=== PATIENT | male | born 1955 | race Caucasian/White ===

== ENCOUNTER 2019-01-27 16:13 | Inpatient (IN) | payer OTHER, SELFPAY | END 2019-01-30 12:08 | disposition home or self-care (01) | DRG 153 | PROVIDERS: Admitting Provider Family Medicine; Emergency Provider Emergency Medicine; PCP Internal Medicine; Visit Provider Family Medicine | DX: J06.9 Acute upper respiratory infection, unspecified (principal); I13.0 Hypertensive heart and chronic kidney disease with heart failure and stage 1 through stage 4 chronic kidney disease, or unspecified chronic kidney disease; I50.32 Chronic diastolic (congestive) heart failure; N18.4 Chronic kidney disease, stage 4 (severe); Z68.42 Body mass index [BMI] 45.0-49.9, adult; J96.10 Chronic respiratory failure, unspecified whether with hypoxia or hypercapnia; E66.2 Morbid (severe) obesity with alveolar hypoventilation; I48.0 Paroxysmal atrial fibrillation; R79.89 Other specified abnormal findings of blood chemistry; E11.22 Type 2 diabetes mellitus with diabetic chronic kidney disease; Z79.01 Long term (current) use of anticoagulants; I25.10 Atherosclerotic heart disease of native coronary artery without angina pectoris; Z79.84 Long term (current) use of oral hypoglycemic drugs; Z87.891 Personal history of nicotine dependence | CPT/HCPCS: 99285; 96374; 51701; 85027 ×2; 85025 ×2; 83690; 83735; 36415 ×4; 84484 ×2; 80048 ×3; 80053; 81001; 83880; 87804; 93005; 71046; 94640 ×3; 82805; G0378 ×5; J1940; 36600; A9270; J1815 ==

== ENCOUNTER 2019-12-24 15:00 | Outpatient (RCR) | payer OTHER, SELFPAY ==
[2019-10-07 11:04] VITALS: BMI 49.1
[2019-10-07 12:20] VITALS: BMI 49.1
[2019-11-12 14:09] VITALS: BMI 50.1
[2019-11-12 14:11] VITALS: BMI 50.1
[2019-12-24 15:07] VITALS: BMI 49.8; BMI 50.1
== END 2020-01-05 23:59 | disposition home or self-care (01) ==
LOC: ANHDMC 15:00
PROVIDERS: PCP Internal Medicine; Visit Provider Internal Medicine
DX: E66.9 Obesity, unspecified (principal); Z71.3 Dietary counseling and surveillance
CPT/HCPCS: 97802; 97803

== ENCOUNTER 2020-03-24 14:00 | Outpatient (RCR) | payer OTHER, SELFPAY ==
[2020-01-19 09:37] VITALS: BMI 50.2
[2020-02-25 08:13] VITALS: BMI 47.8
[2020-02-25 08:15] VITALS: BMI 47.8
[2020-03-24 13:54] VITALS: BMI 48.0
[2020-03-24 13:58] VITALS: BMI 48.0
== END 2020-04-18 23:59 | disposition home or self-care (01) ==
LOC: ANHDMC 14:00
PROVIDERS: PCP Internal Medicine; Visit Provider Internal Medicine
DX: E11.9 Type 2 diabetes mellitus without complications (principal); E66.9 Obesity, unspecified; Z71.3 Dietary counseling and surveillance
CPT/HCPCS: 97802; 97803

== ENCOUNTER 2020-04-16 07:55 | Outpatient (CLI) | payer OTHER, SELFPAY ==
--- NOTE | 2020-04-16 | ECG_ITS ---
Measurements Intervals [place] Rate: 83 P: TN: 0 QRS: -27 QRSD: 90 T: 7 QT: 372 QTc: 438 Interpretive Statements ATRIAL FIBRILLATION DELAYED PRECORDIAL R/S TRANSITION INFERIOR INFARCT, AGE INDETERMINATE BORDERLINE ST-T WAVE ABNORMALITY- HIGH LATERAL LEADS BASELINE ARTIFACT- I, III, AVR, AVL, AVF, V4 ABNORMAL ECG Electronically Signed On 04-16-2020 11:26:37 CDT by Tomas Haynes D.O.
== END 2020-04-16 07:56 | disposition home or self-care (01) ==
LOC: ANHLAB 08:00 → ANHCARD 09:10
PROVIDERS: PCP Internal Medicine
DX: I48.91 Unspecified atrial fibrillation (principal); R94.31 Abnormal electrocardiogram [ECG] [EKG]
CPT/HCPCS: 93005

== ENCOUNTER 2022-08-09 02:18 | Day surgery (SDC) | payer MEDICARE, SELFPAY ==
[2022-07-30 14:34] VITALS: BMI 39.2
[2022-08-09] MEDS: LACTATED RINGERS 1,000 ML 150 ML IV CONT (11:24)
[2022-08-09 11:25] VITALS: BP 180/97; PULSE 100; RESP 22; TEMP 36.2; O2SAT 98
[2022-08-09 11:28] LABS: Glucose Point of Care 93 mg/dl (65-105)
--- NOTE | 2022-08-09 11:28 | WPDANESEPPF ---
Anes - Initial Pre Proc Eval Procedure: Operation Date: 08/09/22 12:30 Proposed Procedures p Screening Colonoscopy - Nate Velarde MD Date/Time: 08/09/22 11:28 Surgeon: Nate Velarde MD Pre Op Diagnosis: family hx of colon cancer Patient Data Age: 66 Gender: M Height: 1.7 m Weight: 125.2 kg Last Vital Signs Temp 97.2 F L 08/09/22 11:25 Pulse 100 08/09/22 11:25 Resp 22 H 08/09/22 11:25 BP 180/97 H 08/09/22 11:25 Pulse Ox 98 08/09/22 11:25 O2 Del Method Room Air 08/09/22 11:25 Allergies Allergy/AdvReac Type Severity Reaction Status Date / Time glimepiride Allergy Severe Seizure Verified 07/30/22 14:46 warfarin Allergy Severe Nose Bleed Verified 07/30/22 14:46 hydralazine Allergy Intermediate Fainting Verified 07/30/22 14:46 adhesive Allergy Mild Redness of Verified 07/30/22 14:46 Skin QUINAPRIL HCL Allergy Severe Swelling Uncoded 07/30/22 14:46 Home Medications Medication Instructions Recorded Confirmed Type blood sugar diagnostic #10 ea 01/25/20 04/20/22 History carvedilol 25 mg tablet 50 mg PO BID 01/25/20 07/30/22 History furosemide 40 mg tablet 40 mg PO BID 01/25/20 07/30/22 History multivitamin 1 tablet PO DAILY 01/25/20 07/30/22 History potassium chloride 20 mEq 20 meq PO BID 01/25/20 07/30/22 History tablet,extended release(part/cryst) (Klor-Con M) atorvastatin 40 mg tablet 40 mg PO DAILY 11/29/20 07/30/22 History isosorbide mononitrate 60 mg 60 mg PO DAILY 11/29/20 07/30/22 History tablet,extended release 24 hr telmisartan 80 mg tablet 80 mg PO DAILY 11/29/20 07/30/22 History ferrous sulfate 325 mg (65 mg 325 mg PO DAILY 04/20/22 07/30/22 History iron) tablet (Feosol) mecobalamin (vitamin B12) 5,000 5,000 mcg PO DAILY 06/24/22 10/03/22 History mcg disintegrating tablet rivaroxaban 20 mg tablet (Xarelto) 20 mg PO DAILY 04/20/22 07/30/22 History glipizide 10 mg tablet 10 mg PO DAILY #90 tabs 04/25/22 07/30/22 Rx sodium,potassium,mag sulfates 17.5 See Rx Instructions PO .COMPLEX 07/24/22 07/30/22 Rx gram-3.13 gram-1.6 gram oral soln #354 mL (Suprep Bowel Prep Kit) calcium citrate 315 mg 3 tablet PO DAILY 07/30/22 07/30/22 History calcium-vitamin D3 6.25 mcg (250 unit) tablet doxazosin 2 mg tablet 2 mg PO HS 07/30/22 07/30/22 History Laboratory Tests 08/09/22 11:17 POC Capillary Glucose Pending Patient hx anesthesia problems: none Family hx anesthesia problems: none Results Review: All pre-operative results and documents have been reviewed as part of the pre-operative evaluation. [facility] Surgical History Surgical History History of bariatric surgery Family History Family History Father Patient's father is Mother Carcinoma of colon Social History Social History Smoking status: Never smoker Smoking end date: 10/28/75 Alcohol intake: current Drinks per week: 2 Substance use: never Substance use type: does not use Living arrangements: with family Spiritual care concerns: No Anes - Eval Final PreProcedure Day of Procedure 08/09/22 11:28 Patient weight: morbidly obese Heart: irregular rhythm Lungs: clear to auscultation Airway: Mallampati scale class III Neurological: alert and oriented Last oral intake: >/= 8 hours ASA classification: IV Emergent: no Anesthetic plan: proceed Results Review: All pre-operative results and documents have been reviewed as part of the pre-operative evaluation. Informed Consent: The patient's anesthetic plan and its attendant risks and benefits were discussed with the patient/family/POA. Questions were solicited and answers provided to the satisfaction of the patient/family/POA.
--- NOTE | 2022-08-09 11:30 | PM.HPGS ---
History of Present Illness History of Present Illness Consent: Risks, benefits, and alternatives have been discussed and questions answered. Patient agrees to proceed with procedure. Chief complaint: family hx of colon cancer Narrative: Trevon Ivy is a 66 year old male Presents for screening colonoscopy. Patient's current weight appetite bowel movements are normal. He denies abdominal pain. Pacing has had no bleeding. Family history is significant that his mother and sister both have had colon cancer his father had colon polyps. Patient presents today for screening colonoscopy. Review of Systems Review of Systems: Review of systems noncontributory. [facility] Surgical History Surgical History History of bariatric surgery Family History Family History Father Patient's father is Mother Carcinoma of colon Social History Social History Smoking status: Never smoker Smoking end date: 10/28/75 Alcohol intake: current Drinks per week: 2 Substance use: never Substance use type: does not use Living arrangements: with family Spiritual care concerns: No Meds Home Medications and Allergies Home Medications Medication Instructions Recorded Confirmed Type blood sugar diagnostic #10 ea 01/25/20 04/20/22 History carvedilol 25 mg tablet 50 mg PO BID 01/25/20 07/30/22 History furosemide 40 mg tablet 40 mg PO BID 01/25/20 07/30/22 History multivitamin 1 tablet PO DAILY 01/25/20 07/30/22 History potassium chloride 20 mEq 20 meq PO BID 01/25/20 07/30/22 History tablet,extended release(part/cryst) (Klor-Con M) atorvastatin 40 mg tablet 40 mg PO DAILY 11/29/20 07/30/22 History isosorbide mononitrate 60 mg 60 mg PO DAILY 11/29/20 07/30/22 History tablet,extended release 24 hr telmisartan 80 mg tablet 80 mg PO DAILY 11/29/20 07/30/22 History ferrous sulfate 325 mg (65 mg 325 mg PO DAILY 04/20/22 07/30/22 History iron) tablet (Feosol) mecobalamin (vitamin B12) 5,000 5,000 mcg PO DAILY 04/20/22 07/30/22 History mcg disintegrating tablet rivaroxaban 20 mg tablet (Xarelto) 20 mg PO DAILY 04/20/22 07/30/22 History glipizide 10 mg tablet 10 mg PO DAILY #90 tabs 04/25/22 07/30/22 Rx sodium,potassium,mag sulfates 17.5 See Rx Instructions PO .COMPLEX 07/24/22 07/30/22 Rx gram-3.13 gram-1.6 gram oral soln #354 mL (Suprep Bowel Prep Kit) calcium citrate 315 mg 3 tablet PO DAILY 07/30/22 07/30/22 History calcium-vitamin D3 6.25 mcg (250 unit) tablet doxazosin 2 mg tablet 2 mg PO HS 07/30/22 07/30/22 History Allergies Allergy/AdvReac Type Severity Reaction Status Date / Time glimepiride Allergy Severe Seizure Verified 07/30/22 14:46 warfarin Allergy Severe Nose Bleed Verified 07/30/22 14:46 hydralazine Allergy Intermediate Fainting Verified 07/30/22 14:46 adhesive Allergy Mild Redness of Verified 07/30/22 14:46 Skin QUINAPRIL HCL Allergy Severe Swelling Uncoded 07/30/22 14:46 Vital Signs Vital Signs - 24 hr 08/09/22 11:25 Temperature 97.2 F L Pulse Rate 100 Respiratory Rate 22 H Blood Pressure 180/97 H Pulse Oximetry 98 Oxygen Delivery Room Air Exam Narrative: Physical exam reveals patient to be alert. Vital signs stable. HEENT exam is unremarkable. Patient is anicteric. Lungs are clear to auscultation and percussion. Heart is without murmur or extra sounds. Abdomen is obese. Bowel sounds are present soft nontender with no organomegaly. Digital external rectal exam is normal. Assessment and Plan Assessment and plan (1) Family hx of colon cancer: Code(s): Z80.0 - Family history of malignant neoplasm of digestive organs Status: Acute Assessment and Plan: Patient has a family history of colon cancer in both mother and sister. His father had colon polyps
[2022-08-09 12:18] VITALS: BP 112/57; PULSE 88; RESP 20; O2SAT 97
[2022-08-09 12:28] VITALS: BP 121/63; PULSE 82; RESP 28; O2SAT 96
[2022-08-09 12:38] VITALS: BP 123/58; PULSE 82; RESP 20; O2SAT 99
== END 2022-08-09 12:57 | disposition home or self-care (01) ==
PROVIDERS: PCP Internal Medicine; Visit Provider Internal Medicine Gastroenterology
PROC: 0DJD8ZZ Inspection of Lower Intestinal Tract, Via Natural or Artificial Opening Endoscopic (ICD-10-PCS; CPT 45378; principal; 2022-08-09 12:30)
DX: Z12.11 Encounter for screening for malignant neoplasm of colon (principal); D12.2 Benign neoplasm of ascending colon; Z80.0 Family history of malignant neoplasm of digestive organs; Z98.84 Bariatric surgery status; Z79.84 Long term (current) use of oral hypoglycemic drugs; E66.01 Morbid (severe) obesity due to excess calories; Z68.41 Body mass index [BMI] 40.0-44.9, adult
CPT/HCPCS: 45385; 82948; 88305; J2704; J7120

== ENCOUNTER 2024-08-19 09:29 | Outpatient (CLI) | payer MEDICARE, SELFPAY ==
--- NOTE | 2024-08-19 | ECG_ITS ---
Test Date: 2024-08-19 09:56:44 Measurements Intervals [place] Rate: 94 P: 0 NV: 0 QRS: -31 QRSD: 82 T: 55 QT: 333 QTc: 417 Interpretive Statements ATRIAL FIBRILLATION PATTERN CONSISTENT WITH PULMONARY DISEASE INFERIOR MYOCARDIAL INFARCTION , PROBABLY OLD [40+ ms Q WAVE AND/OR ST/T ABNORMALITY IN II/aVF] ABNORMAL ECG No previous ECG available for comparison Electronically Signed On 08-19-2024 10:25:28 CDT by Goran Woodruff M.D.
== END 2024-08-19 09:30 | disposition home or self-care (01) ==
PROVIDERS: PCP Internal Medicine; Visit Provider Internal Medicine Cardiovascular Disease
DX: I48.91 Unspecified atrial fibrillation (principal); R94.31 Abnormal electrocardiogram [ECG] [EKG]
CPT/HCPCS: 93005

== ENCOUNTER 2025-04-16 09:27 | Outpatient (CLI) | payer MEDICARE, SELFPAY ==
--- NOTE | ~2025-04-16 | XR_ITS ---
Cervical Spine: AP, lateral, open-mouth views Clinical History: Pain Findings: The normal lordotic curve is maintained. No fracture or subluxation. There is advanced dege nerative disc narrowing at C5-C6 and C6-C7. There is mild facet arthropathy throughout the cervical s pine.. Pre-vertebral soft tissues are unremarkable. Impression: Moderate degenerative spondylosis from C5 to C7. Mild degenerative changes otherwise. Reviewed, dictated and finalized at location . Impression: Moderate degenerative spondylosis from C5 to C7. Mild degenerative changes othe rwise.
== END 2025-04-16 09:28 | disposition home or self-care (01) ==
PROVIDERS: PCP Internal Medicine; Visit Provider Internal Medicine
DX: M47.812 Spondylosis without myelopathy or radiculopathy, cervical region (principal)
CPT/HCPCS: 72040

== ENCOUNTER 2025-07-09 08:43 | Emergency (ER) | payer MEDICARE, SELFPAY ==
--- NOTE | ~2025-07-09 | XR_ITS ---
Examination: XR chest 2V Clinical History: fever 6 days rales R lung field former smoker hx chf, bronch Comparison: None Technique: PA and Lateral Findings: Cardiomediastinal silhouette normal size and configuration. Right lower lobe airspace disease. No acute bony abnormality. IMPRESSION: 1. Right lower lobe pneumonia. Recommend follow-up x-rays to document resolution. Reviewed, dictated and finalized at location R. IMPRESSION: 1. Right lower lobe pneumonia. Recommend follow-up x-rays to document resoluti on.
[2025-07-09 08:54] VITALS: BP 114/75; PULSE 129; RESP 20; TEMP 37.8; O2SAT 96
--- NOTE | 2025-07-09 09:05 | ED.FEVER ---
HPI - Fever General Chief Complaint: Fever Stated Complaint: Fever Time Seen by Provider: 07/09/25 09:05 Source: patient Mode of arrival: ambulatory Limitations: no limitations History of Present Illness HPI Narrative: 69-year-old male presents with complaint of fever for 6 days. No other symptoms. Reports that he started to have generalized weakness yesterday. Denies nausea vomiting diarrhea. Eating and drinking normally. No urinary symptoms. All systems reviewed and negative except as noted above. Related Data Home Medications ?Medication ?Instructions ?Recorded ?Confirmed ?Last Taken ?Type blood sugar diagnostic #10 ea 01/25/20 04/14/25 Unknown History furosemide 40 mg tablet 40 mg PO BID 01/25/20 04/14/25 08/08/22 History multivitamin 1 tablet PO DAILY 01/25/20 04/14/25 08/08/22 History atorvastatin 40 mg tablet 40 mg PO DAILY 11/29/20 04/14/25 08/08/22 History isosorbide mononitrate 60 mg 60 mg PO DAILY 11/29/20 04/14/25 08/09/22 10:00 History tablet,extended release 24 hr telmisartan 80 mg tablet 80 mg PO DAILY 11/29/20 04/14/25 08/08/22 History ferrous sulfate 325 mg (65 mg 325 mg PO DAILY 04/20/22 04/14/25 08/08/22 History iron) tablet (Feosol) mecobalamin (vitamin B12) 5,000 5,000 mcg PO DAILY 04/20/22 04/14/25 08/08/22 History mcg disintegrating tablet rivaroxaban 20 mg tablet (Xarelto) 20 mg PO DAILY 04/20/22 04/14/25 08/06/22 History doxazosin 2 mg tablet 2 mg PO HS 07/30/22 04/14/25 08/08/22 History spironolactone 25 mg tablet 25 mg PO DAILY 05/03/23 04/14/25 Unknown History amlodipine 10 mg tablet 10 mg PO DAILY 08/26/24 04/14/25 Unknown History cetirizine 10 mg capsule (Zyrtec) 10 mg PO DAILY PRN 08/26/24 04/14/25 Unknown History fluticasone furoate 50 inhalation 08/26/24 04/14/25 Unknown History mcg/actuation blister powder for inhalation metoprolol succinate 200 mg mg PO DAILY 08/26/24 04/14/25 Unknown History tablet,extended release 24 hr Allergies Allergy/AdvReac Type Severity Reaction Status Date / Time glimepiride Allergy Severe Seizure Verified 04/14/25 10:27 warfarin Allergy Severe Nose Bleed Verified 04/14/25 10:27 hydralazine Allergy Intermediate Fainting Verified 04/14/25 10:27 adhesive Allergy Mild Redness of Verified 04/14/25 10:27 Skin QUINAPRIL HCL Allergy Severe Swelling Uncoded 04/14/25 10:27 PMFSH Past Medical History Medical History (Updated 07/09/25 @ 10:00 by Antonina Bentley NP) SOB (shortness of breath) Other fatigue Encounter for screening for malignant neoplasm of prostate Anemia, unspecified Allergic rhinitis, unspecified Surgical History Surgical History History of bariatric surgery Family History Family History (Updated 08/26/24 @ 13:23 by HERMAN Burrows) Father CHF (congestive heart failure) Heart disease Diabetes mellitus Mother Carcinoma of colon Sibling Carcinoma of colon Sibling Diabetes mellitus Social History Social History (Updated 08/26/24 @ 13:24 by HERMAN Burrows) Smoking status: Former smoker Second hand tobacco smoke exposure: Yes Smoking end date: 10/28/75 Alcohol intake: current Drinks per week: 2 Substance use: never Substance use type: does not use Do You Feel Safe in your Home?: Yes Lack of Transportation: No Lack of Food: Never True Current Housing: I Have Housing Concerned About Future Housing: No Difficulty Paying Gas/Electric Bills: No Difficulty Paying for Meds: No Currently Unemployed: No Education: High School Diploma/GED Difficulty w/ Childcare or Family Care: No Living arrangements: with family Occupation/Education: retired 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 Gender identity (if verbalized by the patient): Male Spiritual care concerns: No Comments At time of signature, agree with nursing past medical, surgical, social and family history. There is no relevant family history pertinent to the presenting complaint. Exam Narrative: GENERAL: This is a well-nourished, well-developed patient, in no apparent distress. HEAD: normocephalic, atraumatic. EYES: PERRL. Sclera clear/white. Vision is grossly intact. EARS: External ears normal, auditory canals clear and without drainage, TMs normal without perforation. Hearing grossly intact. NOSE: External nose normal with Clear nasal drainage THROAT: Mucous membranes moist, posterior pharynx clear. NECK: Neck supple, non-tender without lymphadenopathy, masses or thyromegaly. CARDIOVASCULAR: Regular rate and rhythm without murmurs, gallops, or rubs. RESPIRATORY: Rales to right lung field otherwise clear. Breath sounds equal bilaterally. No wheezes or rhonchi. SKIN: warm, Dry, intact with no suspicious lesions or rash, good texture and turgor. NEURO: awake, alert, and oriented to person, place and time. There were no obvious focal neurologic abnormalities. EXTREMITIES: No joint tenderness, effusion, or edema noted. Course Course Level of Care: [facility] Visit Vital Signs Vital signs: Vital Signs Temperature 37.8 C H 07/09/25 08:54 Pulse Rate 129 H 07/09/25 08:54 Respiratory Rate 20 07/09/25 08:54 Blood Pressure 114/75 07/09/25 08:54 Pulse Oximetry 96 07/09/25 08:54 Oxygen Delivery Room Air 07/09/25 08:54 Temperature 37.8 C H 07/09/25 08:54 Pulse Rate 129 H 07/09/25 08:54 Respiratory Rate 20 07/09/25 08:54 Blood Pressure 114/75 07/09/25 08:54 Pulse Oximetry 96 07/09/25 08:54 Oxygen Delivery Room Air 07/09/25 08:54 reviewed MDM - Fever MDM Narrative Medical decision making narrative: discussed x-ray results with pt. pt has R lower lobe pneumonia. Given ceftriaxone at [facility]. prescribing doxycycline and augmentin. Recommend follow up with PCP in 1 wk. no resp distress. Will go to the ER for any worsening of symptoms. Differential Diagnosis Differential diagnosis: Likely community acquired pneumonia, viral infection, sepsis and influenza Lab Data Labs: Lab Results 07/09/25 07/09/25 Range/Units 09:26 09:39 POC Urine Color Yellow POC Urine Clarity Clear POC Urine pH 6.0 POC Ur Specif [place] 1.015 POC Urine Protein 2+ (Negative) POC Ur Glucose (UA) Negative (Negative) POC Urine Ketones Trace (Negative) POC Urine Blood 1+ (Negative) POC Urine Nitrite Negative (Negative) POC Urine Bilirubin Negative (Negative) POC Urine Urobilinogen 1.0 POC U Leukocyte Esteras Negative (Negative) POC Influenza A Ag Negative (Negative) POC Influenza B Ag Negative (Negative) POC SARS CoV-2 Ag Negative (Negative) Imaging Data My impression: agree with radiologist Radiologist's impression: Examination: XR chest 2V Clinical History: fever 6 days rales R lung field former smoker hx chf, bronch Comparison: None Technique: PA and Lateral Findings: Cardiomediastinal silhouette normal size and configuration. Right lower lobe airspace disease. No acute bony abnormality. IMPRESSION: 1. Right lower lobe pneumonia. Recommend follow-up x-rays to document resolution. Discharge Plan Discharge Clinical Impression: Pneumonia Qualifiers: Laterality: right Lung location: lower lobe of lung Patient Disposition: Home Condition: Stable Instructions: Antibiotic Form, Pneumonia (ED) Additional Instructions: Take antibiotics as prescribed until gone. Drink at least 64 ounces of water a day. Continue to stay active at home to keep energy up, walking hallway. Schedule follow up appointment with your primary care physician. Patient Language: Swiss Prescriptions: New doxycycline hyclate 100 mg capsule 100 mg PO BID 7 Days Qty: 14 0RF amoxicillin-pot clavulanate 875-125 mg tablet 1 tablet PO Q12H 10 Days Qty: 20 0RF No Action multivitamin Tablet 1 tablet PO DAILY furosemide 40 mg tablet 40 mg PO BID (DME) blood sugar diagnostic Strip See Rx Instructions .ROUTE .MEDSUPPLY Qty: 10 Rx Instructions: As directed amlodipine 10 mg tablet 10 mg PO DAILY metoprolol succinate 200 mg tablet extended release 24 hr PO DAILY Zyrtec 10 mg capsule 10 mg PO DAILY PRN fluticasone furoate 50 mcg/actuation blister with device inhalation atorvastatin 40 mg tablet 40 mg PO DAILY isosorbide mononitrate 60 mg tablet extended release 24 hr 60 mg PO DAILY telmisartan 80 mg tablet 80 mg PO DAILY mecobalamin (vitamin B12) 5,000 mcg tablet,disintegrating 5,000 mcg PO DAILY ferrous sulfate [Feosol] 325 mg (65 mg iron) tablet 325 mg PO DAILY Xarelto 20 mg tablet 20 mg PO DAILY Rx Instructions: must administer with evening meal spironolactone 25 mg tablet 25 mg PO DAILY doxazosin 2 mg tablet 2 mg PO HS glipizide 10 mg tablet 10 mg PO DAILY Qty: 90 3RF Follow-up/Referrals: Adalid Saleh DO [Primary Care Provider, Internal Medicine] Referral Note: follow up in 1 week Time of Disposition: 10:01
[2025-07-09 09:42] LABS: EDUAAPPEAR Clear; EDUABILI Negative (Negative); EDUABLOOD 1+ (Negative); EDUACOLOR1 Yellow; EDUAGLUCOSE Negative (Negative); EDUAKETONE Trace (Negative); EDUALEUKO Negative (Negative); EDUANITRATE Negative (Negative); EDUAPH 6.0; EDUAPROTEIN 2+ (Negative); EDUASPGRAVITY 1.015; EDUAUROBILI 1.0
[2025-07-09 09:42] LABS: EDCOVIDSCREEN Negative (Negative); EDINFLUASCREEN Negative (Negative); EDINFLUBSCREEN Negative (Negative)
[2025-07-09] MEDS: cefTRIAXone 1 GM, LIDOCAINE 1% LOCAL INJ 2.1 ML IM (10:25)
== END 2025-07-09 11:00 | disposition home or self-care (01) ==
PROVIDERS: Emergency Provider Nurse Practitioner Family; PCP Internal Medicine
DX: J18.1 Lobar pneumonia, unspecified organism (principal); Z20.822 Contact with and (suspected) exposure to COVID-19; Z87.891 Personal history of nicotine dependence; D64.9 Anemia, unspecified; Z79.01 Long term (current) use of anticoagulants
CPT/HCPCS: 71046; 81003; 87426; 87804; 96372; 99213; G0463; J0696; J2003

== ENCOUNTER 2025-07-27 09:45 | Outpatient (RCR) | payer MEDICARE, SELFPAY ==
--- NOTE | 2025-05-05 15:25 | OPREHPOC ---
Outpatient Therapy Plan of Care This is a Multidisciplinary Plan of Care that may contain components documented by all disciplines (PT, OT, and ST.) PT Problem 1 PT Problem #1 Knowledge Deficit PT Goal 1 Goal / Goal Update Patient to demonstrate independence with HEP for improved self-reliance of symptom management. Target Visit 5 PT Problem 2 PT Problem #2 Pain PT Goal 1 Goal / Goal Update Patient to decrease subjective reports of pain to <2/10 with cervical rotation for improved driving tolerance. Target Visit 10 PT Problem 3 PT Problem #3 Impaired Range of Motion PT Goal 1 Goal / Goal Update 1. Patient to demonstrate an increase of Faisal cervical rotation AROM to >=40 degrees to improve safety with driving. 2. Patient to demonstrate an increase of cervical ext AROM to >=45 degrees with minimal c/o pain to improve the ability to drink from a cup. Target Visit 10 PT Problem 4 PT Problem #4 Impaired Strength PT Goal 1 Goal / Goal Update Patient to demonstrate Faisal shoulder flexion and abduction strength >=4+/5 for improved functional stability required for ADLs. Target Visit 12
--- NOTE | 2025-05-05 15:25 | PTOPEVAL1 ---
Assessment and note entered by Kortney Tiwari, PT Evaluation Information Assessment Status Evaluation ICD-10 Condition Codes (PT) Cervicalgia M54.2 Onset >6 months Subjective Information Pt reports his neck has been bothering him for over 6 months now. He was hoping it would resolve on its own but at his next MD appt it did not so he mentioned it. He has had a few ground level falls but does not think these caused the pain but maybe exacerbated them. He is having difficulty and pain when driving and trying to look over his shoulders. The pain in in the midline if his lower neck and can be on the sides when he turns. He denies radicular symptoms but can have a dull ache in both of his shoulders at time. He is able to sleep okay but when he rolls over it is uncomfortable. He does not notice the pain as much when he is golfing 2-3x/wk. Reported Pain Level Pain Score 0: Self Report Assessment PT Clinical Summary Pt is a 69 year old male who presents to physical therapy with a primary complaint of cervical pain for the last 6 months. Pt demonstrates Faisal shoulder flexion and abduction weakness, mechanical reproduction of cervical pain, decreased mobility, abnormal posture, and decreased tissue extensibility that limit their ability to perform ADLs. Pt will benefit from skilled physical therapy to address the above listed deficits and return to PLOF. HEP instructed and written handout provided, EX tolerated well with no adverse effects to note post-session. Pt was educated on importance of adherence to HEP. Pt was also educated on anatomy, prognosis, home modalities, and PT POC. Plan of Care Interventions Electrical Stimulation,Hot Pack/Cold Pack,Manual Therapy,Mechanical Traction,Neuro Re-education, Therapeutic Activities,Therapeutic Exercise PT Services Indicated Yes Treatment Frequency and 2x/wk for 10 sessions Duration These treatments will address the objective and functional deficits as defined above. The patient will be advanced safely and appropriately in order for the patient to progress towards his/her prior level of function. Additional exercises will be introduced and as well as a comprehensive home exercise program upon discharge, if needed, ?to ensure carryover of functional gains achieved in the clinic. This treatment plan has been reviewed and agreement upon by the patient.
--- NOTE | 2025-06-16 11:38 | OPREHPOC ---
Outpatient Therapy Plan of Care This is a Multidisciplinary Plan of Care that may contain components documented by all disciplines (PT, OT, and ST.) PT Problem 1 PT Problem #1 Knowledge Deficit PT Goal 1 Goal / Goal Update Patient to demonstrate independence with HEP for improved self-reliance of symptom management. Target Visit 5 Progress Met PT Problem 2 PT Problem #2 Pain PT Goal 1 Goal / Goal Update Patient to decrease subjective reports of pain to <2/10 with cervical rotation for improved driving tolerance. Target Visit 10 Progress Met PT Problem 3 PT Problem #3 Impaired Range of Motion PT Goal 1 Goal / Goal Update 1. Patient to demonstrate an increase of Faisal cervical rotation AROM to >=40 degrees to improve safety with driving. (06/16/25 R rotation: 28, L Rotation: 35) 2. Patient to demonstrate an increase of cervical ext AROM to >=45 degrees with minimal c/o pain to improve the ability to drink from a cup. (06/16/25 Extension: 30) Target Visit 10 Progress Partially Met PT Problem 4 PT Problem #4 Impaired Strength PT Goal 1 Goal / Goal Update Patient to demonstrate Faisla shoulder flexion and abduction strength >=4+/5 for improved functional stability required for ADLs. (06/16/25 Flexion; R: 4+/5 L: 4+/5, Abduction; R: 4/5 L: 4/5) Target Visit 10 Progress Partially Met
--- NOTE | 2025-06-16 11:38 | PTOPPROG ---
Assessment and note entered by Kortney Tiwari, PT Evaluation Information Assessment Status Progress ICD-10 Condition Codes (PT) Cervicalgia M54.2 Onset >6 months Subjective Information Pt reports routine HEP compliance multiple times a day. He thinks the stretches help his neck feel looser. He reports pain at its worst in the last week 11/06, sharp with certain turning. He still likes taking hot showers to help loosen his neck and shoulder up even more. Not as much aching in Faisal shoulders. Overall since first starting therapy the pt reports feeling 40% improvement. He reports continued difficulty with driving and sleeping. His sleep disruptions are minimal now. He is able to swing his golf club but will get sharp pains randomly. Assessment PT Clinical Summary Patient's condition has improved overall as evidenced by advancements in symptoms, mobility, strength, and overall functional tolerance to ADLs . However, some limitations are still present such as decreased FAISAL shoulder abduction strength, limited cervical rotation ROM FAISAL and extension. Patient would benefit from continued skilled PT services to address the above listed impairments and facilitate a return to their PLOF. Plan of Care Interventions Electrical Stimulation,Hot Pack/Cold Pack,Manual Therapy,Mechanical Traction,Neuro Re-education, Therapeutic Activities,Therapeutic Exercise Other Interventions taping, dry needling PT Services Indicated Yes Treatment Frequency and 1-2x/wk for 10 sessions Duration These treatments will address the objective and functional deficits as defined above. The patient will be advanced safely and appropriately in order for the patient to progress towards his/her prior level of function. Additional exercises will be introduced and as well as a comprehensive home exercise program upon discharge, if needed, ?to ensure carryover of functional gains achieved in the clinic. This treatment plan has been reviewed and agreement upon by the patient.
== END 2025-08-03 23:59 | disposition home or self-care (01) ==
LOC: ANHPT 09:45
PROVIDERS: PCP Internal Medicine; Visit Provider Internal Medicine
DX: M54.2 Cervicalgia (principal)
CPT/HCPCS: 97014; 97110; 97140; 97161; 97530; G0283

== ENCOUNTER 2025-07-28 07:57 | Outpatient (CLI) | payer MEDICARE, SELFPAY ==
--- NOTE | ~2025-07-28 | XR_ITS ---
EXAMINATION: XR chest 2V, 07/28/2025 8:08 CDT HISTORY: J18.9 - Pneumonia, unspecified organism, FOLLOW UP COMPARISON: No comparisons available. Technique: 2 views obtained. Findings: The lungs are clear, no effusion. No pneumothorax. Heart is normal size. Mediastinal and hilar contours are within normal limits. Bony thorax no acute abnormality. Impression: No acute cardiopulmonary abnormality. Reviewed, dictated and finalized at location P. Impression: No acute cardiopulmonary abnormality.
--- OUTSIDE RECORDS SUMMARY | 2025-07-28 08:08 | XMS_ITS | Encounter Summary ---
Author Organization [facility] Address [address] [place] [address] Phone Care Team Providers Care Test Technician Name Role Phone Guido Hernandez MD Primary Care Provider [phone] Jed Bonilla MD Unavailable [phone] Adalid Saleh DO Primary Care Provider [phone] Encounter Details Date Type Department Care Team (Latest Contact Info) Description 10/24/2022 Orders Only [facility] Scanning, Provider Social History Tobacco Use Types Packs/Day Years Used Date Smoking Tobacco: Former Cigarettes 0.5 1 1 975 - 1975 Smokeless Tobacco: Never Alcohol Use Standard Drinks/Week Comments Yes 0 (1 standard drink = 0.6 oz pur e alcohol) rarely PHQ-2 Answer Date Recorded PHQ-2 Total Score (If total score is 3 or more points, staff should administer the PHQ-9) 0 07/09/2020 Sex and Gender Information Value Date Recorded Sex Assigned at Not on file 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 Gender Identity Male 06/10/2022 7:27 PM CDT Sexual Orientation Straight 05/27/2020 7: 21 PM CDT documented as of this encounter Plan of Treatment Not on file documented as of this encounter Procedures Procedure Name Priority Date/Time Associated Diagnosis Comments SCAN - LABS 10/24/2022 documented in this encounter Results * SCAN - LABS (10/24/2022) us Provider Scanning Final Result documented in this encounter Visit Diagnoses Not on filedocumented in this encounter Care Teams Test Technician Relationship Specialty Start Date End Date Guido Hernandez MD [address] [place] [address] PCP - General 01/25/17 05/23/25 Adalid Saleh DO [address] [place] [address] PCP - General Internal Medicine 05/24/25 Jed Bonilla MD [address] [place] [address] Referring Physician General Surgery 04/05/20 documented as of this encounter
--- OUTSIDE RECORDS SUMMARY | 2025-07-28 08:09 | XMS_ITS | Clinical Summary ---
Author Organization [facility] Address [address] [place] [address] Care Team Providers Care Delivery Motorcycle Driver Name Role Phone Guido Hernandez DO Primary Care Provider [phone] Source Comments [facility],non-owned Affiliates and Associated Physician Practices is amultiple site organization consisting of ambulatory clinics and hospital sitesin [place], [place], [place]. This disclosure is being madepursuant to the Care Everywhere program and may not contain all information available regarding this patient. 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 Gender Identity Not on file Sexual Orientation Not on file Plan of Treatment Health Maintenance Due Date Last Done Comments COLOGUARD (AGES 45-75) - COL ON CA SCREENING 1955 COLON MONITORING 1955 COLONOSCOPY - COLON CA SCREENING 1955 CT COLONOGRAPHY - COLON CA SCREENING 1955 Colorectal Cancer Screening 1955 FIT - COLON CA SCREENING 1955 FLEX SIG - COLON CA SCREENING 1955 LIPID TESTING 1955 HEPATITIS C SCREENING 09/19/1973 DTAP/TDAP/TD VACCINES (1 - Tdap) 1974 PNEUMOCOCCAL VACCINE 50+ (1 of 1 - PCV) 2005 ZOSTER VACCINE (1 of 2) 2005 DEPRESSION SCREENING 10/28/2024 COVID-19 VACCINE (1 - 2023-2 5 season) 2025 INFLUENZA VACCINE (#1) 2025 Respiratory Syncytial Virus (RSV) Vaccine Pt: or over 60 yrs (1 - 1-dose 75+ series) 2030 HEPATITIS B VACCINE Aged Out No longe r eligible based on patient's age to complete this topic HIB VACCINE Aged Out No longer eligi ble based on patient's age to complete this topic HPV VACCINE Aged Out No longer eligi ble based on patient's age to complete this topic MENINGOCOCCAL (Group B) VACC INE SHARED DECISION-MAKING Aged Out No longer eligibl e based on patient's age to complete this topic MENINGOCOCCAL GROUPS A/C/Y/W VACCINE Aged Out No longer eligible b ased on patient's age to complete this [place] [address] [employer] Care Teams Delivery Motorcycle Driver Relationship Specialty Start Date End Date Guido Hernandez DO [address] [facility] [address] [facility] [address] [place] [address] PCP - General 08/21/22
--- OUTSIDE RECORDS SUMMARY | 2025-07-28 08:09 | XMS_ITS | Encounter Summary ---
Author Organization [facility] Address [address] [place] [address] Phone Care Team Providers Care Casino Cage Cashier Name Role Phone Guido Hernandez MD Primary Care Provider [phone] Jed Bonilla MD Unavailable [phone] Adalid Saleh DO Primary Care Provider [phone] Encounter Details Date Type Department Care Team (Latest Contact Info) Description 11/25/2020 Orders Only [facility] Scanning, Provider [...] on file Legal Sex Male 1:56 AM NEGATIVE CHECKER Gender Identity Male 06/10/2022 7:27 PM CDT Sexual Orientation Straight 05/27/2020 7: 21 PM CDT documented as of this encounter Plan of Treatment Not on file documented as of this encounter Procedures Procedure Name Priority Date/Time Associated Diagnosis Comments SCAN - LABS 11/25/2020 documented in this encounter Results * SCAN - LABS (11/25/2020) us Provider Scanning Final Result documented in this encounter Visit Diagnoses Not on filedocumented in this encounter Care Teams Casino Cage Cashier Relationship Specialty Start Date End Date Guido Hernandez MD [address] [place] [address] PCP - General 01/25/17 05/23/25 Adalid Saleh DO [address] [place] [address] PCP - General Internal Medicine 05/24/25 Jed Bonilla MD [address] [place] [address] Referring Physician General Surgery 04/05/20 documented as of this encounter
--- OUTSIDE RECORDS SUMMARY | 2025-07-28 08:09 | XMS_ITS | Clinical Summary ---
Author Organization [facility] Address [address] [place] [address] Care Team Providers Care Fabric Worker Name Role Phone Jed Bonilla MD Unavailable [phone] Adalid Saleh DO Primary Care Provider Allergies Active Allergy Reactions Criticality Noted Date Comments Adhesive Tape-Silicones Itching,Redness Medium Quinapril Anaphylaxis High Medications glipiZIDE (GLUCOTROL) 10 mg tabletIndicatio ns:type 2 diabetes mellitus Take 1 tablet (10 mg total) by mouth daily after dinner Active cetirizine (ZyrTEC) 10 mg tabletIndicatio ns:Seasonal Allergic Rhinitis Take 1 tablet (10 mg total) by mouth as needed Active ferrous sulfate 325 mg (65 mg of elemental iron) tablet Take 1 tablet (65 mg of elemental iron total) by mouth as needed 03/19/20 12 Active fluticasone propionate (FLONASE) 50 mcg/actuation nasal sprayIndication s:Allergic Rhinitis Administer 2 sprays into each nostril as needed Active cyanocobalamin, vitamin B-12, 500 mcg tablet,disinteg ratingIndicatio ns:Prevention of Vitamin B12 [address] 500 mcg under the tongue daily 30 each 07/10/20 20 Active multivitamin tabletIndicatio ns:Vitamin Deficiency Prevention Take 1 tablet by mouth 2 (two) times a day 60 tablet 5 07/10/20 20 Active furosemide (LASIX) 40 mg tablet Take 1 tablet (40 mg total) by mouth 3 (three) times a week 12 tablet 11 08/26/20 23 Active spironolactone (ALDACTONE) 25 mg tablet Take 1 tablet (25 mg total) by mouth daily 90 tablet 3 10/12/20 24 Active telmisartan (MICARDIS) 80 mg tablet TAKE 1 TABLET BY MOUTH EVERY DAY 90 tablet 3 10/12/20 24 Active atorvastatin (LIPITOR) 40 mg tablet TAKE 1 TABLET BY MOUTH EVERY DAY 90 tablet 3 01/07/20 25 Active rivaroxaban (Xarelto) 20 mg tablet TAKE 1 TABLET BY MOUTH EVERY DAY WITH DINNER 90 tablet 1 03/04/20 25 Active doxazosin (CARDURA) 2 mg tablet TAKE 1 TABLET BY MOUTH EVERY DAY AT NIGHT 90 tablet 3 04/02/20 25 Active isosorbide mononitrate ER (IMDUR) 60 mg 24 hr tablet TAKE 1 TABLET BY MOUTH EVERY DAY 90 tablet 3 04/02/20 25 Active amLODIPine (NORVASC) 10 mg tablet TAKE 1 TABLET BY MOUTH EVERY DAY 90 tablet 3 07/08/20 25 Active metoprolol XL (TOPROL-XL) 200 mg extended release tablet TAKE 1 TABLET BY MOUTH EVERY DAY 90 tablet 3 07/27/20 25 Active metoprolol XL (TOPROL-XL) 200 mg extended release tablet Take 1 tablet (200 mg total) by mouth daily 30 tablet 11 08/10/20 24 025 Discontinued amLODIPine (NORVASC) 10 mg tablet Take 1 tablet (10 mg total) by mouth daily 30 tablet 11 08/21/20 24 025 Discontinued Active Problems Problem Noted Date Diagnosed Date Status post bariatric surgery 08/23/2020 No diagnosis on [place] I 06/03/2020 Hypokalemia 09/06/2017 Chronic kidney disease 02/20/2017 Morbid obesity 08/08/2015 History of cardiomyopathy 08/08/2015 Obesity 01/09/2013 Obstructive sleep apnea syndrome 01/09/2013 Hypertension 01/09/2013 Atrial fibrillation 04/02/2012 Chest pain 03/19/2012 Encounters Date Type Department Care Team Description 05/24/2025 12:00 PM CDT Office Visit [facility] [address] [facility] [address] [place] [address] Huan Lopez MD Permanent atrial fibrillation (HCC) (Primary Dx); Hypertension, unspecified type; Chronic systolic heart failure (HCC); Dyslipidemia from Last 3 Months Surgical History Surgery Date Site/Laterality Comments CHOLECYSTECTOMY CARDIAC ELECTROPHYSIOLOGY MAPPING AND ABLATION ANKLE SURGERY Medical History Medical History Date Comments CHF (congestive heart failure) (HCC) Atrial fibrillation (HCC) Hypertension Sleep apnea Cardiomyopathy Hard to intubate isolated episod e with cardiac ablation only Hyperlipemia CAD (coronary artery disease) Type 2 diabetes mellitus Chronic kidney disease Family History Medical History Relation Name Comments Depression Father Diabetes Father Heart failure Father Family history of congestive heart failure - (Added by TW Conv) Hypertension Father Obesity Father Cancer Mother Obesity Mother Cancer Other 1 sibling Diabetes Other 1 sibling Hypertension Other 1 sibling Obesity Other 1 sibling Cancer Other 2 grandparents Anesthesia problems Sister arrhythm ia Relation Name Status Comments Father Mother Other 1 sibling Alive Other 2 grandparents Alive Sister Social History Tobacco Use Types Packs/Day Years Used Date Smoking Tobacco: Former Cigarettes 0.5 1 1 1975 Passive Smoke Exposure: Past Smokeless Tobacco: Never Tobacco Cessation:Counseling Given: Not Answered Alcohol Use Standard Drinks/Week Comments Yes 0 (1 standard drink = 0.6 oz pur e alcohol) rarely PHQ-2 Answer Date Recorded PHQ-2 Total Score (If total score is 3 or more points, staff should administer the PHQ-9) 0 07/09/2020 Sex and Gender Information Value Date Recorded Sex Assigned at Not on file 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 Gender Identity Male 06/10/2022 7:27 PM CDT Sexual Orientation Straight 05/27/2020 7: 21 PM CDT Obstetrics History Last Filed Vital Signs Vital Sign Reading Time Taken Comments Blood Pressure 138/75 05/24/2025 12:35 PM CDT Pulse 74 05/24/2025 12:35 PM CDT Temperature 36.5 C (97.7 F) 05/24/2025 12:35 PM CDT Respiratory Rate 14 09/02/2020 3:27 PM CYLINDER PRESS OPERATOR HELPER Oxygen Saturation 98% 05/24/2025 12:35 PM CDT Inhaled Oxygen Concentration - - Weight 127.5 kg (281 lb) 05/24/2025 12:35 PM CDT Height 170.2 cm (5' 7) 05/24/2025 12:35 PM CDT Body Mass Index 44.01 05/24/2025 12:35 PM CDT Plan of Treatment Health Maintenance Due Date Last Done Comments Colon Cancer Screening-Colonoscopy 1955 Hepatitis C Screening 1955 Prostate Cancer Screening-PSA 1955 DTaP/Tdap/Td Vaccine (1 - Tdap) 1966 Hepatitis B Screening 1973 Pneumococcal vaccine 65+ (1 of 2 - PCV) 1974 Zoster Vaccine (1 of 2) 2005 Abdominal Aortic Aneurysm (AAA) Screen 2020 Well Visit 65+ 2020 Depression Screening 06/28/2021 06/28/2020, 06/28/20 20 Fall Risk Assessment 09/02/2021 09/02/2020 Influenza Vaccine (#1) 2025 08/07/2018, 2015 Insurance A[employer]NA MEDICARE [place] [employer] [facility] [employer] OPEN ACCESS AET MEDICARE Advance Directives For more information, please contact: [phone] * Full Code (Latest Code Status on File) Date Activated Date Inactivated Comments 07/09/2020 5:38 PM 07/10/2020 11:54 PM Care Teams Fabric Worker Relationship Specialty Start Date End Date Adalid Saleh DO PCP - General Internal Medicine 05/24/25 Jed Bonilla MD Referring Physician General Surgery 04/05/20
--- OUTSIDE RECORDS SUMMARY | 2025-07-28 08:09 | XMS_ITS | Encounter Summary ---
Author Organization [facility] Address [address] [place] [address] Phone Care Team Providers Care Linen Folder Name Role Phone Guido Hernandez MD Primary Care Provider [phone] Jed Bonilla MD Unavailable Adalid Saleh DO Primary Care Provider [phone] Encounter Details Date Type Department Care Team (Latest Contact Info) Description 01/24/2024 Orders Only [facility] Scanning, Provider [...] on file Legal Sex Male 1:56 AM GARBAGE COLLECTOR Gender Identity Male 06/10/2022 7:27 PM CDT Sexual Orientation Straight 05/27/2020 7: 21 PM CDT documented as of this encounter Plan of Treatment Not on file documented as of this encounter Procedures Procedure Name Priority Date/Time Associated Diagnosis Comments SCAN - LABS 01/24/2024 documented in this encounter Results * SCAN - LABS (01/24/2024) us Provider Scanning Final Result documented in this encounter Visit Diagnoses Not on filedocumented in this encounter Care Teams Linen Folder Relationship Specialty Start Date End Date Guido Hernandez MD [address] [place] [address] PCP - General 01/25/17 05/23/25 Adalid Saleh DO [address] [place] [address] PCP - General Internal Medicine 05/24/25 Jed Bonilla MD [address] [place] [address] Referring Physician General Surgery 04/05/20 documented as of this encounter
== END 2025-07-28 07:58 | disposition home or self-care (01) ==
PROVIDERS: PCP Internal Medicine; Visit Provider Internal Medicine
DX: J18.9 Pneumonia, unspecified organism (principal)
CPT/HCPCS: 71046

== ENCOUNTER 2025-08-10 10:00 | Outpatient (RCR) | payer MEDICARE, SELFPAY ==
--- NOTE | 2025-08-10 10:45 | OPREHPOC ---
Outpatient Therapy Plan of Care This is a Multidisciplinary Plan of Care that may contain components documented by all disciplines (PT, OT, and ST.) PT Problem 1 PT Problem #1 Knowledge Deficit PT Goal 1 Goal / Goal Update Patient to demonstrate independence with HEP for improved self-reliance of symptom management. 08-10-25 d/c goal met Target Visit 5 Progress Met PT Problem 2 PT Problem #2 Pain PT Goal 1 Goal / Goal Update Patient to decrease subjective reports of pain to <2/10 with cervical rotation for improved driving tolerance. 08-10-25 d/c goal met, 1/10 at worst Target Visit 10 Progress Met PT Problem 3 PT Problem #3 Impaired Range of Motion PT Goal 1 Goal / Goal Update 1. Patient to demonstrate an increase of Faisal cervical rotation AROM to >=40 degrees to improve safety with driving. (06/16/25 R rotation: 28, L Rotation: 35) 2. Patient to demonstrate an increase of cervical ext AROM to >=45 degrees with minimal c/o pain to improve the ability to drink from a cup. (06/16/25 Extension: 30) 08-10-25 d/c goals not met Target Visit 10 Progress Not Met PT Problem 4 PT Problem #4 Impaired Strength PT Goal 1 Goal / Goal Update Patient to demonstrate Faisal shoulder flexion and abduction strength >=4+/5 for improved functional stability required for ADLs. (06/16/25 Flexion; R: 4+/5 L: 4+/5, Abduction; R: 4/5 L: 4/5) 08-10-25 d/c goals met for strength Target Visit 20 Progress Met
--- NOTE | 2025-08-10 10:45 | PTOPDC ---
Assessment and note entered by Yodit Koch, PT Assessment Status Discharge ICD-10 Condition Codes (PT) Cervicalgia M54.2 Onset >6 months Subjective Information neck pain has eased up, still sore, less pain; been doing the stretches and exercises at home and they help; able to play golf 2x/wk; does all the laundry at home, carry basket to basement and do yard work; Reported Pain Level Pain Score Self Report Additional Pain Score Comments pain range in the past week 0-1/10; tight, stiff in neck; some pain in shoulders; get headaches about 1x/month; increase pain: cervical extension decrease pain: change positions, stretch, heat pad, hot shower just bought an electrical stim machine, not opened up yet; educated and discussed use of unit and pad placements; also have the massage roller; Assessment PT Clinical Summary Trevon has received a total of 19 PT sessions. With today's assessment: pain range of 0-1/10; self assessment with Neck Index rating of 0-1/10; most pain increase reported with cervical extension; cervical rotation R is 30' and L is 35 '- both increase pain and limit his driving and seeing cars at his sides; good strength of bilateral shoulders 4+/5; continues to have muscle tightness and spasms over cervical and upper traps muscles, education completed for HEP and posture. He has a home stim unit for pain control. The goals were partially met. Discharge PT. He is to continue with his HEP and home stim unit. Plan of Care PT Services Indicated No
== END 2025-08-10 14:20 | disposition home or self-care (01) ==
LOC: ANHPT 10:00
PROVIDERS: PCP Internal Medicine; Visit Provider Internal Medicine
DX: M54.2 Cervicalgia (principal)
CPT/HCPCS: 97014; 97110; 97140; G0283

== ENCOUNTER 2025-09-16 11:36 | Outpatient (CLI) | payer MEDICARE, SELFPAY ==
--- NOTE | 2025-09-16 11:41 | ECG_ITS ---
Test Date: 2025-09-16 11:58:23 Measurements Intervals [place] Rate: 96 P: 0 AR: 0 QRS: -29 QRSD: 94 T: 63 QT: 329 QTc: 417 Interpretive Statements ATRIAL FIBRILLATION BORDERLINE LEFT AXIS DEVIATION [QRS AXIS < -20] NONSPECIFIC T-WAVE ABNORMALITY ABNORMAL RHYTHM ECG Compared to ECG 08/19/2024 09:56:44 T-wave abnormality now present Myocardial infarct finding no longer present Electronically Signed On 09-16-2025 14:45:48 CULINARY DIRECTOR by Kaushik Briscoe M.D.
[2025-09-16 12:05] LABS: Hematocrit 37.9 % (42.0-52.0); Hemoglobin 12.4 g/dL (14.0-18.0)
[2025-09-16 12:20] LABS: INR 1.6; Prothrombin Time 18.6 Seconds (11.1-14.7)
[2025-09-16 12:21] LABS: Partial Thromboplastin Time 40.9 Seconds (22.3-36.8)
[2025-09-16 12:25] LABS: Anion Gap 5 mmol/L (4-12); Blood Urea Nitrogen 23 mg/dL (9-20); Calcium 9.3 mg/dL (8.4-10.2); Carbon Dioxide 28 mmol/L (22-30); Chloride 103 mmol/L (98-107); Estimated Glomerular Filt Rate 53; Glucose 120 mg/dL (65-110); Potassium 4.5 mmol/L (3.4-5.0); Sodium 136 mmol/L (137-145)
== END 2025-09-16 11:37 | disposition home or self-care (01) ==
LOC: ANHSURGERY 11:39
PROVIDERS: Anesthesiology; PCP Internal Medicine; Visit Provider Surgery
DX: N18.2 Chronic kidney disease, stage 2 (mild) (principal); I12.9 Hypertensive chronic kidney disease with stage 1 through stage 4 chronic kidney disease, or unspecified chronic kidney disease; Z01.818 Encounter for other preprocedural examination
CPT/HCPCS: 36415; 80048; 85014; 85018; 85610; 85730; 93005

== ENCOUNTER 2025-09-27 01:09 | Day surgery (SDC) | payer MEDICARE, SELFPAY ==
[2025-09-10 15:03] VITALS: BMI 43.8
--- NOTE | 2025-09-10 15:15 | PC.NURSE ---
[facility] has started construction of its new state of the art ER which will open Spring 2026. With this, we anticipate parking may be a challenge for some our surgical patients and families. Parking spaces are limited but are available for all Surgical, obstetrics, and ER patients sharing this lot. If you arrive and find you are having a hard time finding a parking space, please note that we understand the challenges, please drive around the hospital and park near Hospital Entrance 1. When you enter this entrance, you can ask a volunteer to direct or take you back to the surgical waiting area to check in. We appreciate everyone?s understanding of these expected challenges while we build for your future. Report to the Outpatient Waiting Room, entrance under the green pavilion located off [address], at time __1130am on date __09/27/25 . Planned Procedure Time: _1:30pm .? Time changes happen often and if your time is changed the preop area will call you the afternoon before. - You and your visitor will be asked to self-screen and do not enter if you have any COVID symptoms. Please call surgeon if you need to reschedule. - A mask is optional within the hospital at this time. Patients may have clear liquids (water, carbonated beverages, clear teas, apple juice) until 3 hours prior to surgery with a maximum of 20 ounces. - No food from midnight until time of surgery and no smoking, or chewing tobacco (or any form of nicotine). No chewing gum, candy or mints. (10:30am) Take only the following medications with a SIP of water on the morning of surgery: ___Amlodipine, Isosorbide and Metoprolol DO NOT STOP ANY OF YOUR OTHER PRESCRIPTION MEDICATIONS PRIOR TO SURGERY EXCEPT THE FOLLOWING Hold all vitamins and supplements for 3 days per anesthesiologist. Medications to discontinue per physician Yovany per Dr Richardson ( pt to call for instructions, office is closed today when I called) Date to take last dose___Pending Please no make-up, nail danish, hairspray, perfume, deodorant, or body powder the day of surgery.? No jewelry (including any body piercings) or valuables the day of surgery, leave them at home.? Please take a shower or bath the night before, or the morning of, surgery with an antibacterial soap.? Wear comfortable, loose fitting clothing.? - Jewelry must be removed prior to entering the operating room.? Rings and piercings that are not removed may be cut off. - The hospital will not accept responsibility for valuables.? - Please leave all valuables, including medications, at home the day of surgery. If you are going home after surgery, a licensed ambulance driver paramedic must drive you home.? - NO public transportation without another adult if you receive anesthesia. - We recommend that an adult stay with you for 24 hours following discharge. - We also recommend that you do not drive, make important decision, drink alcoholic beverages, or take any drugs that were not prescribed by your health care provider for at least 24 hours after your discharge time. Follow any additional instructions given to you from your surgeon. Fior asked pt to call on Saturday for Yovany instructions. Telephone instructions given to _Patient and asked if any additional questions and then verbalized understanding. Patient advised to call surgeon office or pre surgery nurse liaison [phone] if any additional questions.
[2025-09-27] VITALS (7 sets, daily range): BP systolic 102–124; BP diastolic 60–71; PULSE 68–91; RESP 12–16; TEMP 36.3–36.5; O2SAT 94–100
--- NOTE | 2025-09-27 10:13 | WPDHPUPDATE1 ---
History and Physical Update Update Date/Time: 09/27/25 10:13 History and Physical has been reviewed, including an updated exam of the patient. There are NO changes in the patient's condition. Risks, benefits, and alternatives have been discussed and questions answered. Patient agrees to proceed with procedure.
[2025-09-27] MEDS: LACTATED RINGERS 1,000 ML 30 ML IV CONT ×2 (12:30→14:55)
[2025-09-27 12:31] LABS: INR 1.1; Prothrombin Time 13.9 Seconds (11.1-14.7)
[2025-09-27 12:32] LABS: Partial Thromboplastin Time 29.7 Seconds (22.3-36.8)
--- NOTE | 2025-09-27 13:15 | WPDANESEPPF ---
Anes - Initial Pre Proc Eval Procedure: Operation Date: 09/27/25 13:15 Proposed Procedures p Excisional Biopsy Scalp Mass - Ana Richardson MD Date/Time: 09/27/25 13:15 Surgeon: Ana Richardson MD Pre Op Diagnosis: scalp mass Patient Data Age: 70 Gender: M Height: 1.7 m Weight: 128.7 kg Last Vital Signs Temp 36.5 C 09/27/25 11:45 Pulse 91 09/27/25 11:45 Resp 16 09/27/25 11:45 BP 117/69 09/27/25 11:45 Pulse Ox 100 09/27/25 11:45 O2 Del Method Room Air 09/27/25 11:45 Allergies Allergy/AdvReac Type Severity Reaction Status Date / Time glimepiride Allergy Severe Seizure Verified 09/27/25 11:57 warfarin Allergy Severe Nose Bleed Verified 09/27/25 11:57 hydralazine Allergy Intermediate Fainting Verified 09/27/25 11:57 adhesive Allergy Mild Redness of Verified 09/27/25 11:57 Skin QUINAPRIL HCL Allergy Severe Swelling Uncoded 09/08/25 09:57 Home Medications ?Medication ?Instructions ?Recorded ?Confirmed ?Type blood sugar diagnostic #10 ea 01/25/20 09/10/25 History furosemide 40 mg tablet 40 mg PO .3 times a week 01/25/20 09/27/25 History multivitamin 1 tablet PO DAILY 01/25/20 09/27/25 History atorvastatin 40 mg tablet 40 mg PO DAILY 11/29/20 09/27/25 History isosorbide mononitrate 60 mg 60 mg PO DAILY 11/29/20 09/27/25 History tablet,extended release 24 hr telmisartan 80 mg tablet 80 mg PO DAILY 11/29/20 09/27/25 History ferrous sulfate 325 mg (65 mg 325 mg PO DAILY 04/20/22 09/27/25 History iron) tablet (Feosol) mecobalamin (vitamin B12) 5,000 5,000 mcg PO DAILY 04/20/22 09/27/25 History mcg disintegrating tablet rivaroxaban 20 mg tablet (Xarelto) 20 mg PO DAILY 04/20/22 09/27/25 History Held on 09/10/25. Instructions: .Provider Order doxazosin 2 mg tablet 2 mg PO HS 07/30/22 09/27/25 History spironolactone 25 mg tablet 25 mg PO DAILY 05/03/23 09/27/25 History amlodipine 10 mg tablet 10 mg PO DAILY 08/26/24 09/27/25 History cetirizine 10 mg capsule (Zyrtec) 10 mg PO DAILY PRN allergy symptoms 08/26/24 09/10/25 History fluticasone furoate 50 1 inh inhalation Q24H 08/26/24 09/10/25 History mcg/actuation blister powder for inhalation metoprolol succinate 200 mg 200 mg PO DAILY 08/26/24 09/27/25 History tablet,extended release 24 hr glipizide 10 mg tablet 10 mg PO DAILY #90 tabs 01/05/25 09/27/25 Rx calcium citrate 200 mg PO BID 09/10/25 09/27/25 History multivitamin with minerals-folic 1 tablet PO DAILY 09/10/25 09/27/25 History acid 80 mcg chewable tablet (Centrum Adult 50 Plus) Laboratory Tests 09/27/25 09/27/25 12:12 12:13 PT 13.9 Seconds (11.1-14.7) INR 1.1 APTT 29.7 Seconds (22.3-36.8) POC Capillary Glucose 113 H mg/dl (65-105) Patient hx anesthesia problems: none Family hx anesthesia problems: none Results Review: All pre-operative results and documents have been reviewed as part of the pre-operative evaluation. [facility] Past Medical History Medical History (Updated 09/08/25 @ 10:32 by Beulah Noriega) Hx of kidney disease SOB (shortness of breath) Other fatigue Encounter for screening for malignant neoplasm of prostate Anemia, unspecified Allergic rhinitis, unspecified Surgical History Surgical History (Updated 09/08/25 @ 10:03 by Gisselle Antony MA) Hx of colonoscopy History of bariatric surgery Family History Family History (Updated 09/08/25 @ 10:04 by Gisselle Antony MA) Father CHF (congestive heart failure) Heart disease Diabetes mellitus Depression Mother Carcinoma of colon Depression Sibling Carcinoma of colon Depression Sibling Diabetes mellitus Other Hypertension Social History Social History (Updated 09/08/25 @ 10:04 by Gisselle Antony MA) Smoking packs per day: 0.5 Smoking cigarettes per day: 10.0 Years smoked: 3 Smoking pack-years: 1.50 Smoking status: Former smoker Tobacco type: cigarettes Second hand tobacco smoke exposure: Yes Smoking end date: 10/28/75 Additional smoking assessment comments: Denies any nicotine Alcohol intake: current Drinks per week: 2 Alcohol use details: Beer/Vodka 1 day per week Substance use: never Substance use type: does not use Lack of Transportation: No Lack of Food: Never True Current Housing: I Have Housing Concerned About Future Housing: No Difficulty Paying Gas/Electric Bills: No Difficulty Paying for Meds: No Currently Unemployed: No Education: High School Diploma/GED Difficulty w/ Childcare or Family Care: No Living arrangements: with family Additional living arrangements comments: Occupation/Education: retired 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 Gender identity (if verbalized by the patient): Male Spiritual care concerns: No Anes - Eval Final PreProcedure Day of Procedure 09/27/25 13:15 Patient weight: morbidly obese Heart: regular rate and rhythm Lungs: clear to auscultation Airway: Mallampati scale class III Neurological: alert and oriented Last oral intake: >/= 8 hours ASA classification: III Emergent: no Anesthetic plan: proceed Anesthesia type and monitoring: general LMA and standard monitoring Results Review: All pre-operative results and documents have been reviewed as part of the pre-operative evaluation. Informed Consent: The patient's anesthetic plan and its attendant risks and benefits were discussed with the patient/family/POA. Questions were solicited and answers provided to the satisfaction of the patient/family/POA.
[2025-09-27] MEDS: ceFAZolin 3 GM/D5W 100 ML 100 ML IVPB (13:34)
[2025-09-27] MEDS: BACITRACIN OINTMENT 15 GM TUBE 1 APPLIC TOPICAL (13:58)
--- NOTE | 2025-09-27 14:11 | S_PTH ---
PATIENT: Trevon Ivy LOC: [facility] U#:[id number] AGE/SX: 70/M ROOM: RE09/27/[address]: Ana Richardson MD : 1955 BED: DIS: 09/27/2025 SPEC #: [id number] RECD: 09/28/25 08:18 STATUS: NGHIA REQ #: [id number] ROXANNA: 09/27/25 14:[address]: Ana Richardson DEPT: [facility] Surgical RECD BY: Ten Malone ENTERED: 09/28/25 08:19 SP TYPE: Surgical OTHR DR: Adalid Saleh DO Tissues: A - Mass Procedures: Hematoxylin and Eosin Stain Gross and Microscopic Level 3
--- NOTE | 2025-09-27 15:01 | WPDCN ---
Assessment and Plan Assessment and plan (1) Mass of scalp: Code(s): R22.0 - Localized swelling, mass and lump, head Status: Acute HPI Data of Consult Date/Time: 09/27/25 15:01 Requesting Physician: Ana Richardson MD Primary Care Provider: Adalid Saleh DO Consult Narrative Narrative: intraoperative consult was placed for this patient with large scalp mass excised in OR, but compliance of scalp tissue and size and direction of incision was such that notable tension was preventing closure so plastics asked for intraop eval for management options. Plan: 1) no path Dx known so local flap not indicated. 2) primary closure achieved in OR 3) dressing instructions and post-op mgmt discussed with Dr. Richardson who will continue with post-op mgmt and refer if needed. [facility] Past Medical History Medical History (Updated 09/08/25 @ 10:32 by Beulah Noriega) Hx of kidney disease SOB (shortness of breath) Other fatigue Encounter for screening for malignant neoplasm of prostate Anemia, unspecified Allergic rhinitis, unspecified Surgical History Surgical History (Updated 09/08/25 @ 10:03 by Gisselle Antony MA) Hx of colonoscopy History of bariatric surgery Family History Family History (Updated 09/08/25 @ 10:04 by Gisselle Antony MA) Father CHF (congestive heart failure) Heart disease Diabetes mellitus Depression Mother Carcinoma of colon Depression Sibling Carcinoma of colon Depression Sibling Diabetes mellitus Other Hypertension Social History Social History (Updated 09/08/25 @ 10:04 by Gisselle Antony MA) Smoking packs per day: 0.5 Smoking cigarettes per day: 10.0 Years smoked: 3 Smoking pack-years: 1.50 Smoking status: Former smoker Tobacco type: cigarettes Second hand tobacco smoke exposure: Yes Smoking end date: 10/28/75 Additional smoking assessment comments: Denies any nicotine Alcohol intake: current Drinks per week: 2 Alcohol use details: Beer/Vodka 1 day per week Substance use: never Substance use type: does not use Lack of Transportation: No Lack of Food: Never True Current Housing: I Have Housing Concerned About Future Housing: No Difficulty Paying Gas/Electric Bills: No Difficulty Paying for Meds: No Currently Unemployed: No Education: High School Diploma/GED Difficulty w/ Childcare or Family Care: No Living arrangements: with family Additional living arrangements comments: Occupation/Education: retired 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 Gender identity (if verbalized by the patient): Male Spiritual care concerns: No Meds Home Medications and Allergies Home Medications ?Medication ?Instructions ?Recorded ?Confirmed ?Type blood sugar diagnostic #10 ea 01/25/20 09/10/25 History furosemide 40 mg tablet 40 mg PO .3 times a week 01/25/20 09/27/25 History multivitamin 1 tablet PO DAILY 01/25/20 09/27/25 History atorvastatin 40 mg tablet 40 mg PO DAILY 11/29/20 09/27/25 History isosorbide mononitrate 60 mg 60 mg PO DAILY 11/29/20 09/27/25 History tablet,extended release 24 hr telmisartan 80 mg tablet 80 mg PO DAILY 11/29/20 09/27/25 History ferrous sulfate 325 mg (65 mg 325 mg PO DAILY 04/20/22 09/27/25 History iron) tablet (Feosol) mecobalamin (vitamin B12) 5,000 5,000 mcg PO DAILY 04/20/22 09/27/25 History mcg disintegrating tablet rivaroxaban 20 mg tablet (Xarelto) 20 mg PO DAILY 04/20/22 09/27/25 History Held on 09/10/25. Instructions: .Provider Order doxazosin 2 mg tablet 2 mg PO HS 07/30/22 09/27/25 History spironolactone 25 mg tablet 25 mg PO DAILY 05/03/23 09/27/25 History amlodipine 10 mg tablet 10 mg PO DAILY 08/26/24 09/27/25 History cetirizine 10 mg capsule (Zyrtec) 10 mg PO DAILY PRN allergy symptoms 08/26/24 09/10/25 History fluticasone furoate 50 1 inh inhalation Q24H 08/26/24 09/10/25 History mcg/actuation blister powder for inhalation metoprolol succinate 200 mg 200 mg PO DAILY 08/26/24 09/27/25 History tablet,extended release 24 hr glipizide 10 mg tablet 10 mg PO DAILY #90 tabs 01/05/25 09/27/25 Rx calcium citrate 200 mg PO BID 09/10/25 09/27/25 History multivitamin with minerals-folic 1 tablet PO DAILY 09/10/25 09/27/25 History acid 80 mcg chewable tablet (Centrum Adult 50 Plus) hydrocodone 5 mg-acetaminophen 325 1 tablet PO Q6H PRN pain #20 tabs 09/27/25 Rx mg tablet Allergies Allergy/AdvReac Type Severity Reaction Status Date / Time glimepiride Allergy Severe Seizure Verified 09/27/25 11:57 warfarin Allergy Severe Nose Bleed Verified 09/27/25 11:57 hydralazine Allergy Intermediate Fainting Verified 09/27/25 11:57 adhesive Allergy Mild Redness of Verified 09/27/25 11:57 Skin QUINAPRIL HCL Allergy Severe Swelling Uncoded 09/08/25 09:57 Vital Signs Vital Signs - 24 hr 09/27/25 11:45 Temperature 36.5 C Pulse Rate 91 Respiratory Rate 16 Blood Pressure 117/69 Pulse Oximetry 100 Oxygen Delivery Room Air
--- NOTE | 2025-09-27 15:04 | P.OP_ITS ---
Procedure Note - Detailed Date of Procedure 09/27/25 Pre-op Diagnosis fungating scalp mass measuring 4.5 x 3 x 2 cm Post-op Diagnosis Same Procedure Performed wide local excision fungating scalp mass measuring 4.5 x 3 x 2 cm Surgeon Ana Richardson MD Anesthesia General and Local Indications 70-year-old male presenting with a fungating scalp mass that has been in enlarging in size over the last few months Findings fungating scalp mass measuring 4.5 x 3 x 2 cm requiring wide local excision, plastic surgery was consulted intraoperatively for complex closure Description of Procedure The patient was taken to the operating room and placed in the supine position. After adequate induction of general anesthesia, the patient was prepped and draped in the normal sterile fashion. A time-out was then done to verify the patient's identity, as well as the procedure being performed. I began by making elliptical incision in the dermis around the mass. A wide local excision was done secondary to suspicion of skin cancer. Once incision was made, I used the Bovie cautery to go through the dermis and into the subcutaneous tissue. At this point, the specimen was completely excised. The lesion measured 4.5 x 3 x 2 cm. It will now be sent to pathology for further review. I then gained hemostasis with the Bovie cautery. Then undermined the dermis and subcutaneous tissue to facilitate closure. Given the friability and tautness of the area, was unable to achieve a adequate closure. Given this, an interoperative consult to Dr. Lipscomb with Plastic surgery was done. He graciously came into the op erating room and was able to do a complex closure of this wound that measured 7 cm. Please see his full operative report for details. Further local anesthetic was placed after closure and sterile dressing was placed. The patient tolerated the procedure well was extubated postoperatively. He will be sent to the recovery room in stable condition. Estimated Blood Loss 20 Pathology Yes Complications No immediate complications Condition Stable Disposition PACU [facility] Billing Surgery - Charge Forward: Surgery Billing
--- NOTE | 2025-09-27 15:04 | P.OP_ITS ---
Procedure Note - Detailed Date of Procedure 09/27/25 Pre-op Diagnosis scalp mass Post-op Diagnosis Same (open wound scalp) Procedure Performed complex closure scalp Surgeon Caterina Lipscomb MD Anesthesia General Description of Procedure intraop consult was placed to assist in clsoure of large diameter scalp mass excision. wide undermining tissue under galea. sharp debridement irregular partialy torn skin edges. penetrating towel clamps placed to help improve wound approxiation and allow for skin creep. closure with 2-0 vicryl , 0-prolene and 3-0 nylons. total length of closure measured 7cm benzoin, steri-strip, 4x4, abd, kerlix and headrap applied. patient awasken from anesthesia and care returned to Dr. Richardson. maintain sutures for 2 weeks. [facility] Billing Surgery - Charge Forward: Surgery Billing (would bill [id number] for intraop con sult and [id number] for procedure)
[2025-09-27] MEDS: fentaNYL CITRATE INJ (*CRX) 100 MCG/2 ML VIAL 25 MCG IV PUSH ×2 (15:21→15:23)
[2025-09-27] MEDS: oxyCODONE HCL (*CRX) 5 MG TAB IR PO (16:22)
== END 2025-09-27 17:00 | disposition home or self-care (01) ==
PROVIDERS: Anesthesiology; PCP Internal Medicine; Visit Provider Surgery
PROC: (CPT 11626; principal; 2025-09-27 13:15)
DX: C44.42 Squamous cell carcinoma of skin of scalp and neck (principal); Z79.01 Long term (current) use of anticoagulants; Z79.899 Other long term (current) drug therapy; E66.01 Morbid (severe) obesity due to excess calories; Z68.41 Body mass index [BMI] 40.0-44.9, adult
CPT/HCPCS: 11626; 13121; 36415; 82948; 85610; 85730; 88304; A9270; J0690; J2405; J2704; J3010; J7120